=== PATIENT | female | born 1940 | race Caucasian/White ===

== ENCOUNTER 2019-01-15 08:35 | Day surgery (SDC) | payer MEDICARE ==
[2019-01-15 09:21] LABS: ANION GAP 20.9 mmol/L (8-16); CALCIUM 9.1 mg/dL (8.5-10.1); CARBON DIOXIDE 23.9 mmol/L (21.0-32.0); CREATININE - SERUM 6.4 mg/dL (0.6-1.3); POTASSIUM - SERUM 4.8 mmol/L (3.5-5.1)
[2019-01-15 09:23] LABS: BASOPHILS 0 % (0-2); EOSINOPHILS 0 % (0-7); HEMATOCRIT 40.4 % (36.0-48.0); HEMOGLOBIN 13.1 g/dL (12-16); IMMATURE GRANULOCYTES 0.1 % (0-5); LYMPHOCYTES 16.8 % (15-50); MCHC 32.4 g/dL (31.0-37.0); MCV 104.9 fL (80.0-100.0); MEAN PLATELET VOLUME 9.5 fL (7.4-10.4); MONOCYTES 0.6 % (2-11); NEUTROPHILS 82.5 % (40-80); RBC 3.85 10x6/uL (4.00-5.40); RDW 13.9 % (11.5-14.5); WBC 6.7 10x3/uL (4.8-10.8)
[2019-01-15 09:24] LABS: PLATELET COUNT 184 10x3/uL (130-400)
[2019-01-15 09:25] LABS: INR 1.04 (0.85-1.17); PROTIME 13.1 SECONDS (11.6-15.0)
[2019-01-15 10:31] VITALS: BP 134/45; BMI 22.5
[2019-01-15] MEDS ORDERED: NITROGLYCERIN 2% (10:50)
[2019-01-15] MEDS ORDERED: FUROSEMIDE40 MG PO (10:50)
[2019-01-15] MEDS ORDERED: VISTARIL25 MG PO (10:51)
[2019-01-15] MEDS ORDERED: LEVOXYL25 MCG (10:51)
[2019-01-15] MEDS ORDERED: NEPHROCAPS SOFTG1 MG PO (10:52)
[2019-01-15] MEDS ORDERED: ULTRAM50 MG PO (10:52)
--- NOTE | 2019-01-15 12:51 | NUR ---
SLING APPLIED TO RT ARM IN RR
--- NOTE | 2019-01-15 14:10 | NUR ---
PATIENT AMBULATING AROUND ROOM WITH RIGHT ARM IN SLING. LEFT HAND PIV DC'D WITH TIP INTACT. PATIENT DRESSING IN PERSONAL CLOTHING WITH DAUGHTER'S ASSISTANCE. 1430 DISCHARGE INSTRUCTIONS REVIEWED WITH PATIENT AND DAUGHTER. DISCHARGED HOME VIA WHEELCHAIR TO PRIVATE VEHICLE WITH DAUGHTER
--- NOTE | 2019-01-18 10:36 | OP ---
PATIENT NAME: NOLAN BABCOCK MEDICAL RECORD: [id number] :41 LOCATION:[facility] ADMISSION DATE: SURGEON: RICHARD ADLER MD DATE OF OPERATION: 01/15/2019 REFERRING PHYSICIAN: Mike Schumacher MD PREOPERATIVE DIAGNOSES: End-stage renal disease and dependence on hemodialysis and diabetes mellitus with chronic kidney disease. SURGEON: Richard Adler MD ANESTHESIA: Regional block plus general by LMA per WATCHMAKER APPRENTICE and Dr. Escalona. PREOPERATIVE NOTE: Ms. Babcock is a 78-year-old white female with severe diabetes and end-stage renal disease. She has begun on dialysis via a tunneled dialysis catheter and needs long-term access. She has borderline poor tissue and skin for a primary fistula, but is considered still possibly a candidate for such. Under anesthesia in supine position, the patient was prepped and draped in a sterile manner and examined with a duplex ultrasound after application of a Wilbur drain for a proximal venous tourniquet and nitroglycerin paste on the intact upper arm and forearm skin. The patient was found to have a small calcified radial artery, but a satisfactory brachial artery at the antecubital level and a good basilic vein. I elected to perform brachiobasilic AV fistula. Also, I decided early on that this should be a 2-stage operation, first creating a Glendy fistula to prepare the vein, and then returning her to the operating room for creation of the real translocated fistula. An incision was made on the medial aspect of the arm and the basilic vein first exposed and numerous tributaries divided between ligatures of 3-0 Vicryl. The vein was treated with repeated applications of topical papaverine. Distally, it was ligated and divided and bevelled, flushed with heparinized saline and treated again with topical papaverine. The brachial artery was then exposed and controlled with Silastic loops. The artery was occluded and a small arteriotomy made about 6 mm in length. The artery was flushed with heparinized saline proximally and distally and the vein then anastomosed to the artery end of vein to side of artery done with continuous running 7-0 Prolene. The suture line was treated with Evicel and after 2-minute cure, the occluding loops were released and excellent flow developed in the fistula and the suture line was quite hemostatic. There was a very pleasing geometry to this fistula. The wound was inspected and hemostasis achieved further with discrete use of electrocautery. The wound was infiltrated with 0.25% Marcaine without epinephrine and the wound closed without the use of a drain with interrupted inverted 3-0 Vicryl and running intracuticular 4-0 Stratafix. The incision was sealed with glue and dressed with Maxorb Ag, Tegaderm, and Cavilon skin prep and she was awakened and in stable condition with good flow in the fistula and distally on the brachial artery and distally in the radial artery at the wrist by Doppler. Blood loss was minimal, almost none and certainly unreplaced. Sponges, instruments, and needles were accounted for. No drain was used and no surgical specimen submitted for histopathology. She will return to see me in my office next week. She is given a prescription for Buckley 5/325, #10, she can have 1 p.o. q.4 hours p.r.n. pain as needed. The original operative dressing should remain intact and I will plan to remove it OPERATIVE REPORT [id number] NOLAN BABCOCK and check her wound when she sees me in the office next week. TRANSINT:[id number] Voice Confirmation ID: [id number] DOCUMENT ID: [id number] cc: [facility] [place], RICHARD ADLER MD at 1036 CC: MIKE SCHUMACHER [phone] DICTATION DATE: 01/15/19 1252 FIRE EXTINGUISHER REPAIRER INSPECTOR: 01/15/[address] [facility] 01/15/19 [id number] [place] [address]
[2019-02-12] MEDS ORDERED: HYDROCODON-ACE1 EAC7 PO (18:06)
== END 2019-01-15 14:30 | disposition home or self-care (01) ==
LOC: D.OPS 08:35
PROVIDERS: Surgery; ATTEND Internal Medicine Nephrology
DX: E11.22 Type 2 diabetes mellitus with diabetic chronic kidney disease (principal); N18.6 End stage renal disease; Z99.2 Dependence on renal dialysis

== ENCOUNTER 2019-02-12 08:03 | Day surgery (SDC) | payer MEDICARE | END 2019-02-12 20:00 | disposition home or self-care (01) | LOC: D.OPS 08:03 | DX: T82.898A Other specified complication of vascular prosthetic devices, implants and grafts, initial encounter (principal); N18.6 End stage renal disease; Z99.2 Dependence on renal dialysis; Z01.812 Encounter for preprocedural laboratory examination ==